=== PATIENT | male | born 1960 | race Caucasian/White ===

== ENCOUNTER 2021-11-26 15:47 | Emergency (ER) | payer MEDICAID, SELFPAY ==
--- NOTE | 2021-11-26 15:57 | ED.LOWEXIN ---
HPI - Extremity Injury (Lower) General Chief Complaint: Extremity Problem,Nontraumatic Stated Complaint: feet pain from diabetes Time Seen by Provider: 11/26/21 15:57 Source: patient and RN notes reviewed History of Present Illness HPI Narrative: Patient is 61-year-old male who presents the urgent care with complaints of bilateral lower extremity pain and swelling. Patient states he has diabetes and he believes his neuropathy is acting up . Patient has had symptoms for the last week with increased redness and swelling to the bilateral soles for the last few days. Patient states he takes gabapentin for his neuropathy and will speak to his PCP about upping the medication. Patient has not taken anything [id number] for his pain. Denies of any recent trauma or injury to the feet. States that he did clip the large toenails a few weeks ago the sores do not seem to be healing . Denies any fever, chills, nausea or vomiting. No other acute complaints. No acute distress noted. Patient read the plan of care. Some parts of this dictation were generated by voice recognition software and may contain typographical and/or grammatical inaccuracies. Related Data Home Medications Medication Instructions Recorded Confirmed atorvastatin 40 mg PO DAILY 11/26/21 11/26/21 carvedilol 6.25 mg PO DAILY 11/26/21 11/26/21 gabapentin 100 mg PO TID 11/26/21 11/26/21 nitroglycerin 0.4 mg SUBLINGUAL PRN PRN 11/26/21 11/26/21 ticagrelor [Brilinta] 90 mg PO BID 11/26/21 11/26/21 Allergies Allergy/AdvReac Type Severity Reaction Status Date / Time No Known Allergies Allergy Verified 11/26/21 16:10 Review of Systems Review of Systems: CONSTITUTIONAL: Denies fever, chills, or sweats. EYES: Denies visual changes, redness, or discharge. ENT: Denies rhinorrhea, congestion, sore throat, or otalgia. CARDIOVASCULAR: Denies chest pain, palpitations, or edema. RESPIRATORY: Denies cough or dyspnea. GASTROINTESTINAL: Denies abdominal pain, nausea, vomiting, or diarrhea. GENITOURINARY: Denies dysuria or hematuria. SKIN: reports of sores to the great toes and increased redness and swelling to the bottom of the feet MUSCULOSKELETAL: Denies back pain, joint pain, or myalgia. NEUROLOGIC: reports of numbness and tingling bilateral feet All other systems reviewed are negative, except as documented in HPI. PMFSH Comments At the time of my signature, I reviewed and agree with the nursing past medical, surgical, social, and family history. There is no relevant family history pertinent to the patient complaint. Exam Narrative: GENERAL: This is a well-nourished, well-developed patient, in no apparent distress. HEAD: normocephalic, atraumatic. EYES: PERRL. Sclera clear/white. Vision is grossly intact. EARS: External ears normal NOSE: External nose normal with no obvious nasal discharge, nares without redness, no rhinorrhea. THROAT: Mucous membranes moist, posterior pharynx clear. NECK: Neck supplethyromegaly. CARDIOVASCULAR: Regular rate and rhythm RESPIRATORY: Clear to auscultation. Breath sounds equal bilaterally. No wheezes, rales, or rhonchi. SKIN: Erythemic mildly anemic soles of bilateral feet with stage I diabetic ulcers to bilateral great toes NEURO: awake, alert, and oriented to person, place and time. There were no obvious focal neurologic abnormalities. EXTREMITIES: No clubbing, cyanosis, or edema. Positive bilateral pedal pulses Course Course Level of Care: Express Care Visit Vital Signs Vital signs: Vital Signs Temperature 98.6 F 11/26/21 15:58 Pulse Rate 101 H 11/26/21 15:58 Respiratory Rate 11/26/21 15:58 Blood Pressure 125/80 11/26/21 15:58 Pulse Oximetry 100 11/26/21 15:58 Temperature 98.6 F 11/26/21 15:58 Pulse Rate 101 H 11/26/21 15:58 Respiratory Rate 20 11/26/21 15:58 Blood Pressure 125/80 11/26/21 15:58 Pulse Oximetry 100 11/26/21 15:58 Reviewed MDM - Extremity Injury (Lower) MDM Narrative Med
[2021-11-26 15:58] VITALS: BP 125/80; PULSE 101; RESP 20; TEMP 37; O2SAT 100
== END 2021-11-26 16:25 | disposition home or self-care (01) ==
PROVIDERS: Emergency Provider Nurse Practitioner Family
DX: E11.42 Type 2 diabetes mellitus with diabetic polyneuropathy (principal); E11.621 Type 2 diabetes mellitus with foot ulcer; L97.521 Non-pressure chronic ulcer of other part of left foot limited to breakdown of skin; Z79.84 Long term (current) use of oral hypoglycemic drugs; E78.00 Pure hypercholesterolemia, unspecified
CPT/HCPCS: 99213; G0463